=== PATIENT | female | born 1975 | race Caucasian/White ===

== ENCOUNTER 2022-09-13 09:45 | Outpatient (CLI) | payer BC, SELFPAY ==
--- NOTE | 2022-09-13 10:15 | CRLHL7_ITS ---
For Patients: As a result of the Cures Act, medical imaging exams and procedure reports are released immediately into your electronic medical record. You may view this report before your referring provider. If you have questions, please contact your health care provider. BILATERAL SCREENING MAMMOGRAM WITH COMPUTER-AIDED DETECTION AND TOMOSYNTHESIS TECHNIQUE: CC and MLO views were obtained. These mammographic images have been obtained using full-field digital technique. These mammographic images were interpreted with the benefit of computer-aided detection. Breast Tomosynthesis was used in this interpretation. COMPARISON FILM: 09/11/21, 07/08/19, 04/21/18. FINDINGS: The breasts are heterogeneously dense, which may obscure small masses IMPRESSION: There is no radiographic evidence for malignancy. ASSESSMENT: BI-RADS Category 1: Negative RECOMMENDATION: Routine screening mammogram in 1 year. A lay language report of this examination will be provided to the patient. Nick Klein M.D. Diagnostic Radiologist [email or web address] WILLIE/Dictated by: Nick Klein MD @ 09/13/2022 11:38:00 AM WILLIE/Dictated by: Nick Klein MD @ 09/13/2022 11:38:00 AM (Electronically Signed)
== END 2022-09-13 09:46 | disposition home or self-care (01) ==
PROVIDERS: PCP Physician Assistant Medical; Visit Provider Physician Assistant Medical
DX: Z12.31 Encounter for screening mammogram for malignant neoplasm of breast (principal); R92.2 Inconclusive mammogram
CPT/HCPCS: 77063; 77067

== ENCOUNTER 2022-09-19 15:00 | Emergency (ER) | payer BC, SELFPAY ==
[2022-09-19] VITALS (14 sets, daily range): BP systolic 119–133; BP diastolic 70–85; PULSE 61–93; RESP 18; TEMP 36.1; O2SAT 93–99; BMI 32.9
--- NOTE | 2022-09-19 16:34 | ED_ITS ---
HPI - Abdominal Pain General Time Seen by Provider: 16:34 Date Seen: 09/19/22 Chief Complaint: Abdominal Pain Stated Complaint: Dehydration Time Seen by Provider: 09/19/22 16:34 Source: patient, RN notes reviewed and old records reviewed Mode of arrival: ambulatory Limitations: no limitations History of Present Illness HPI narrative: January is a very pleasant 46-year-old female previously healthy who comes to the emergency room for evaluation regarding persistent vomiting and abdominal pain. Patient notes that last night she noticed that her stomach was bothering her. She has been dealing with some what she describes as tightness in her right lower quadrant and states that she was supposed to follow up for a CT. This had been ordered by ISHMAEL Marrufo at the [facility]. She notes that she started vomiting at approximately 0300 hours this morning and has continued in been persistent. She notes some loose stools this morning but states that is often normal for her but this was a little bit more than normal. She states that she had a similar incident at which time they thought she was dealing with diverticulitis. She has had a bladder lift in the past but still retains a gallbladder as well as appendix. She notes no fever or chills. She describes the pain as starting in the right lower quadrant radiating across the entire abdomen and occasionally into her low chest. She has not taken any medications for this. Additional surgery includes a rectal reconstruction after 4th degree tear was repaired after her 2nd baby. Patient was initially feeling somewhat bloated but that has improved. She has been passing gas this afternoon. Related Data Previous Rx's Medication Instructions Recorded hydrocodone 5 mg-acetaminophen 325 1 tab PO Q4-6H PRN pain #14 tabs 09/19/22 mg tablet ondansetron 4 mg disintegrating 4 mg PO Q8H PRN nausea and 09/19/22 tablet vomiting #10 tabs Allergies Allergy/AdvReac Type Severity Reaction Status Date / Time hydrocodone [From Vicodin] Allergy Intermediate vainting Verified 09/19/22 15:18 lactose Allergy Verified 09/19/22 15:18 Gluten Meal Allergy Uncoded 06/17/22 14:21 Review of Systems Status of ROS Reports: 10 or more systems reviewed and unremarkable except as noted in History and below Const Denies: fever or chills ENMT Reports: throat pain (From vomiting); Denies: neck pain, throat swelling, difficulty swallowing or hoarseness Cardio Reports: chest pain; Denies: palpitations, swelling of feet/ankles, lightheadedness or shortness of breath with exertion Resp Denies: shortness of breath or cough GI Reports: abdominal pain, nausea, vomiting and diarrhea; Denies: difficulty swallowing Denies: painful urination Musculo Denies: back pain, neck pain or extremity pain Integ/Breast Denies: rash Neuro Denies: headache or numbness in extremities Endo Denies: excessive urination Allergy/Immuno Denies: throat swelling PFSH PFS Surgical History History of shoulder surgery (09/28/12) ?Z98.890 - Other specified postprocedural states (ICD-10) History of foot surgery (09/28/12) ?Z98.890 - Other specified postprocedural states (ICD-10) Status post arthroscopy of right shoulder (01/30/07) ?Z98.890 - Other specified postprocedural states (ICD-10) Status post arthroscopy of right shoulder (03/06/18) ?Z98.890 - Other specified postprocedural states (ICD-10) Social History Smoking Status: Current every day smoker How often do you have a drink containing alcohol: 4 or more times a week How many standard drinks containing alcohol do you have on a typical day: 1 or 2 AUDIT-C Alcohol total score: 4 Non-prescribed substance use: denies use Exam Narrative: Exam Narrative: Patient is sleeping when I enter the room. She is easily awoken. She is alert and oriented. Eyes are clear. Speech is normal and mentation is as well. Her lips are dry her tongue is with moist mucous membranes. Neck is supple heart with regular rate and rhythm. Lungs are clear bilaterally. Abdomen shows some tenderness in the right lower quadrant but no rebound tenderness at this time. Bowel sounds are present and are normal. Lower extremities without edema. Moving all extremities Const: Vital Signs, click to edit/add: Vital Signs - 24 hr 09/19/22 15:14 09/19/22 17:23 09/19/22 17:24 Temperature 97.0 F L Pulse Rate 69 66 Pulse Rate [Left P ulse Oximeter] 76 Respiratory Rate 18 Blood Pressure 130/85 Blood Pressure [Ri ght Upper Arm] 127/78 Pulse Oximetry 97 99 96 Oxygen Delivery Me thod Room Air 09/19/22 17:41 09/19/22 17:45 09/19/22 17:46 Temperature Pulse Rate 86 85 68 Pulse Rate [Left P ulse Oximeter] Respiratory Rate Blood Pressure 133/72 Blood Pressure [Ri ght Upper Arm] Pulse Oximetry 97 93 98 Oxygen Delivery Me thod 09/19/22 18:00 09/19/22 18:01 09/19/22 18:15 Temperature Pulse Rate 81 70 68 Pulse Rate [Left P ulse Oximeter] Respiratory Rate Blood Pressure 127/72 Blood Pressure [Ri ght Upper Arm] Pulse Oximetry 94 96 97 Oxygen Delivery Me thod 09/19/22 18:30 09/19/22 18:31 09/19/22 18:45 Temperature Pulse Rate 62 61 93 Pulse Rate [Left P ulse Oximeter] Respiratory Rate Blood Pressure 120/77 Blood Pressure [Ri ght Upper Arm] Pulse Oximetry 96 95 95 Oxygen Delivery Me thod 09/19/22 19:00 09/19/22 19:02 Temperature Pulse Rate 71 70 Pulse Rate [Left P ulse Oximeter] Respiratory Rate Blood Pressure 119/70 Blood Pressure [Ri ght Upper Arm] Pulse Oximetry 95 99 Oxygen Delivery Me thod Documenting provider has reviewed patient's vital signs: yes Course Course Hospital Course: Differential diagnosis includes but is not limited to viral gastroenteritis, small-bowel obstruction, diverticulitis, colitis, ischemic bowel, appendicitis, UTI, sepsis, kidney stone. Will place an IV and give Toradol 15 mg, Zofran 4 mg IV as well as 1 L of normal saline. Will check labs to include CBC, comprehensive panel, CRP, lipase, urinalysis, CRP. Given patient's level of discomfort along with the nausea and previous plan to have a CT will order some abdominal CT with contrast. Vital Signs Vital signs: Initial Vital Signs Temperature 97.0 F L 09/19/22 15:14 Temperature Source Temporal Artery Scan 09/19/22 15:14 Pulse Rate 76 09/19/22 15:14 Respiratory Rate 18 09/19/22 15:14 Blood Pressure 127/78 09/19/22 15:14 Blood Pressure Mean 94 09/19/22 15:14 Blood Pressure Position Sitting 09/19/22 15:14 Pulse Oximetry 97 09/19/22 15:14 Oxygen Delivery Method Room Air 09/19/22 15:14 Vital Signs Temperature 97.0 F L 09/19/22 15:14 Pulse Rate 76 09/19/22 15:14 Respiratory Rate 18 09/19/22 15:14 Blood Pressure 127/78 09/19/22 15:14 Pulse Oximetry 97 09/19/22 15:14 Oxygen Delivery Method Room Air 09/19/22 15:14 Temperature 97.0 F L 09/19/22 15:14 Pulse Rate 70 09/19/22 19:02 Respiratory Rate 18 09/19/22 15:14 Blood Pressure 119/70 09/19/22 19:02 Pulse Oximetry 99 09/19/22 19:02 Oxygen Delivery Method Room Air 09/19/22 15:14 MDM - Abdominal Pain MDM Narrative Medical decision making narrative: 1. Gastritis-gastritis is identified on CT. Patient noted to have leukocytosis likely demargination from vomiting as we is not we have not been able to identify any specific infection and CRP was within normal limits. Amylase also within normal limits as are LFTs. Patient had no pain over right upper quadrant. Patient is given pantoprazole 80 mg IV. Will have patient continue omeprazole 40 mg daily for an additional 2 weeks. Patient is a smoker and this may be H pylori infection. I would like her to follow up with [facility] as she has relationship with them. And upper endoscopy with biopsy is likely what should have been in this particular case. For pain would like her to avoid ibuprofen although she did have improvement of her met pain with that particular medicine here in the ER. She notes that she gets sick when she takes Vicodin and thus I will give her some Zofran to help mitigate that feeling. Vicodin 5/325 1-2 tabs p.o. q.4-6 hours p.r.n. number 10 with no refills. Zofran 4 mg ODT Q 6-8 hours p.r.n. 10. With no refills. 2. Vomiting-Zofran 4 mg IV resolve this. Patient also received 1 L of normal saline. She has had resolution of this symptom. 2. Disposition-home at this time. [employer]. Push fluids. Pain meds as directed. Follow-up with [facility] for further evaluation. Return to the emergency room for worsening symptoms. Medical Records Attestation: I reviewed the patient's medical records. Lab Data Attestation: I reviewed the patient's lab results. Labs: Lab Results 09/19/22 09/19/22 Range/Units 16:55 17:05 WBC 14.21 H (4.50-11.00) K/uL RBC 4.92 (4.00-5.20) m/uL Hgb 16.7 H (12.0-16.0) gm/dL Hct 48.2 (33.0-51.0) % MCV 98 (80-100) fL MCH 34 (26-34) pg MCHC 35 (32-36) gm/dL RDW Coeff of Gissel 12.0 (11.5-15.5) % Plt Count 338 (140-440) K/uL Neut % (Auto) 84.5 H (42.0-72.0) % Lymph % (Auto) 10.3 L (20-44) % [place] % (Auto) 4.7 (0.0-11.0) % Eos % (Auto) 0.2 (0.0-7.0) % Baso % (Auto) 0.1 (0.0-3.0) % Neut # (Auto) 12.00 H (1.7-7.0) K/uL Lymph # (Auto) 1.50 (0.90-2.90) K/uL [place] # (Auto) 0.70 (0.00-0.90) K/UL Eos # (Auto) 0.00 (0.00-0.50) K/uL Baso # (Auto) 0.00 (0.00-0.30) K/uL Sodium 139 (135-149) mmol/L Potassium 3.9 (3.6-5.1) mmol/L Chloride 101 (96-114) mmol/L Carbon Dioxide 26 (20-32) mmol/L BUN 12 (5-24) mg/dL Creatinine 0.8 (0.5-1.5) mg/dL Estimated Creat Clear 68.76 Estimated GFR 91 ml/min Glucose 124 H (60-115) mg/dL Calcium 9.5 (8.4-10.6) mg/dL Total Bilirubin 1.3 (0.1-1.5) mg/dL Direct Bilirubin 0.3 (0.0-0.5) mg/dL AST 23 (12-35) U/L ALT 26 (4-35) U/L Alkaline Phosphatase 76 (40-150) U/L C-Reactive Protein 0.7 (0.5-1.0) mg/dL Total Protein 8.3 (6.0-8.3) g/dL Albumin 5.0 (3.3-5.0) g/dL Lipase 88 (23-300) U/L Urine Color Yellow (Yellow) Urine Appearance Clear (Clear) Urine pH 5.0 (5.0-8.5) Ur Specific [place] >= 1.030 (1.000-1.030) Urine Protein Negative (Negative) Urine Glucose (UA) Negative (Negative) Urine Ketones 1+ A (Negative) Urine Blood Negative (Negative) Urine Nitrite Negative (Negative) Urine Bilirubin Negative (Negative) Urine Urobilinogen 0.2 (0.2-1.0) Ur Leukocyte Esterase Negative (Negative) Urine RBC 0-2 (0-2) Urine WBC 0-2 (0-5) Ur Squamous Epith Cells Few (None-Few) Urine Bacteria None (None) Imaging Data CT scan - abdomen: Attestation: I have reviewed the pertinent imaging results. Radiologist's impression: Lower chest: Unremarkable. Liver: Unremarkable. Normal in size and attenuation. No suspicious masses. Gallbladder and bile ducts: Unremarkable. No stones or inflammation. No biliary dilatation. Pancreas: Unremarkable. No mass or inflammation. Spleen: Unremarkable. Normal in size. No masses. Adrenal glands: Unremarkable. No nodules. Kidneys: Unremarkable. No suspicious masses, stones, or hydronephrosis. GI tract: Mild gastric wall thickening accentuated by nondistention. Normal in caliber. No sign of mass or inflammation. Appendix not seen, however no right lower quadrant inflammatory stranding. Vasculature: Abdominal aorta is normal in caliber. Mesenteric arteries are patent. Lymph nodes: No lymphadenopathy. Peritoneum/Abdominal Wall: Unremarkable. No sign of mass or infiltration. No free air or significant free fluid. Pelvis: Unremarkable. Bones: Unremarkable for age. IMPRESSION: Mild gastric wall thickening accentuated by nondistention. Low grade gastritis not excluded. Discharge Plan Discharge Clinical Impression: Gastritis Qualifiers: Gastritis type: unspecified gastritis Chronicity: acute Gastritis bleeding: without bleeding Qualified Code(s): K29.00 - Acute gastritis without bleeding Abdominal pain Qualifiers: Abdominal location: unspecified location Qualified Code(s): R10.9 - Unspecified abdominal pain Vomiting Qualifiers: Vomiting type: unspecified Nausea presence: with nausea Qualified Code(s): R11.2 - Nausea with vomiting, unspecified Patient Disposition: Home, Self-Care Condition: Improved Additional Instructions: Tomorrow, I would like you to start on omeprazole which is bcdm-vbf-wamroun acid suppressor for your stomach. Instead of 1 tablet per the instructions I would like you to take 2 tablets every 24 hours. I would like you to follow-up with [facility] for evaluation as I do think you will likely need endoscopy and stomach biopsy to check for H pylori. For nausea you may use Zofran 4 mg ODT as needed. For pain you may use Vicodin 5/325. Note that this medication has both Tylenol in it and a narcotic called hydrocodone. Hydrocodone also known as Vicodin should not be used with Ativan, lorazepam, Valium or any other benzodiazepines. It may make you constipated. Return to the emergency room for bleeding, worsening pain, onset of new symptoms and as needed. Prescriptions: New hydrocodone-acetaminophen 5-325 mg tablet 1 tab PO Q4-6H PRN (Reason: pain) Qty: 14 0RF ondansetron 4 mg tablet,disintegrating 4 mg PO Q8H PRN (Reason: nausea and vomiting) Qty: 10 0RF Follow Up/Referrals: Vincent Marrufo PA-C [Primary Care Provider] - Stand Alone Forms: [employer] Info Instructions
--- NOTE | 2022-09-19 16:50 | CRLHL7_ITS ---
For Patients: As a result of the Century Cures Act, medical imaging exams and procedure reports are released immediately into your electronic medical record. You may view this report before your referring provider. If you have questions, please contact your health care provider. INDICATION: Right lower quadrant and upper epigastric pain. TECHNIQUE: CT abdomen and pelvis acquired with 89 cc Isovue 370 IV contrast. COMPARISON: None. FINDINGS: Lower chest: Unremarkable. Liver: Unremarkable. Normal in size and attenuation. No suspicious masses. Gallbladder and bile ducts: Unremarkable. No stones or inflammation. No biliary dilatation. Pancreas: Unremarkable. No mass or inflammation. Spleen: Unremarkable. Normal in size. No masses. Adrenal glands: Unremarkable. No nodules. Kidneys: Unremarkable. No suspicious masses, stones, or hydronephrosis. GI tract: Mild gastric wall thickening accentuated by nondistention. Normal in caliber. No sign of mass or inflammation. Appendix not seen, however no right lower quadrant inflammatory stranding. Vasculature: Abdominal aorta is normal in caliber. Mesenteric arteries are patent. Lymph nodes: No lymphadenopathy. Peritoneum/Abdominal Wall: Unremarkable. No sign of mass or infiltration. No free air or significant free fluid. Pelvis: Unremarkable. Bones: Unremarkable for age. IMPRESSION: Mild gastric wall thickening accentuated by nondistention. Low grade gastritis not excluded. Otherwise, no acute intra-abdominal/pelvic abnormality. Please note that all CT scans at this facility use dose modulation, iterative reconstruction, and/or weight-based dosing when appropriate to reduce radiation dose to as low as reasonably achievable. Dictated by Dimitris Gustafson MD @ 09/19/2022 6:48:10 PM (Electronically Signed)
[2022-09-19 17:05] LABS: Appearance Urine Clear (Clear); Bilirubin Urine Negative (Negative); Blood Urine Negative (Negative); Color Urine Yellow (Yellow); Glucose Urine Negative (Negative); Ketones Urine 1+ (Negative); Leukocyte Esterase Urine Negative (Negative); Nitrite Urine Negative (Negative); Protein Urine Negative (Negative); Specific Gravity Urine >= 1.030 (1.000-1.030); Urobilinogen Urine 0.2 (0.2-1.0)
[2022-09-19] MEDS: ONDANSETRON 2 MG/ML inj 4 MG IVP (17:14)
[2022-09-19] MEDS: 0.9 % SODIUM CHLORIDE 1000 ml 1,000 ML IV (17:14)
[2022-09-19] MEDS: KETOROLAC 15 MG/ML inj IVP (17:14)
[2022-09-19 17:17] LABS: RBC Urine 0-2 (0-2); Squamous Epithelial Cell Urine Few (None-Few); WBC Urine 0-2 (0-5)
[2022-09-19 17:18] LABS: Basophils Percent Auto 0.1 % (0.0-3.0); Eosinophils Percent Auto 0.2 % (0.0-7.0); Hematocrit 48.2 % (33.0-51.0); Hemoglobin* 16.7 gm/dL (12.0-16.0); Immature Granulocytes Pct Auto 0.2 %; Lymphocytes Percent Auto 10.3 % (20-44); Mean Corpuscular HGB Conc 35 gm/dL (32-36); Mean Corpuscular Hemoglobin 34 pg (26-34); Mean Corpuscular Volume 98 fL (80-100); Monocytes Percent Auto 4.7 % (0.0-11.0); Neutrophils Percent Auto 84.5 % (42.0-72.0); Platelet Count* 338 K/uL (140-440); Red Blood Count 4.92 m/uL (4.00-5.20); White Blood Count* 14.21 K/uL (4.50-11.00)
[2022-09-19 17:33] LABS: Chloride* 101 mmol/L (96-114); Sodium* 139 mmol/L (135-149)
[2022-09-19 17:34] LABS: Potassium* 3.9 mmol/L (3.6-5.1)
[2022-09-19 17:36] LABS: Carbon Dioxide* 26 mmol/L (20-32); Creatinine* 0.8 mg/dL (0.5-1.5); Est. Creatinine Clearance* 68.76; Estimated Glomerular Filt Rate 91 ml/min; Slide Review Reflex No
[2022-09-19 17:37] LABS: Alanine Aminotransferase* 26 U/L (4-35); Alkaline Phosphatase* 76 U/L (40-150); Aspartate Amino Transferase* 23 U/L (12-35); Bilirubin Direct* 0.3 mg/dL (0.0-0.5); Bilirubin Total* 1.3 mg/dL (0.1-1.5); Blood Urea Nitrogen* 12 mg/dL (5-24); Calcium* 9.5 mg/dL (8.4-10.6); Glucose* 124 mg/dL (60-115); Lipase* 88 U/L (23-300); Total Protein* 8.3 g/dL (6.0-8.3)
[2022-09-19 17:40] LABS: C Reactive Protein* 0.7 mg/dL (0.5-1.0)
[2022-09-19] MEDS: PANTOPRAZOLE SODIUM 80 MG in 0.9 % SODIUM CHLORIDE 100 ml 100 ML 10 MG IVPB (19:10)
== END 2022-09-19 19:32 | disposition home or self-care (01) ==
PROVIDERS: Emergency Provider Family Medicine; PCP Physician Assistant Medical
DX: R11.2 Nausea with vomiting, unspecified (principal); K29.00 Acute gastritis without bleeding
CPT/HCPCS: 36415; 74177; 80053; 81001; 82248; 83690; 85025; 86140; 96365; 96375; 99284; C9113; J1885; J2405; J7030; Q9967

== ENCOUNTER 2022-11-13 09:49 | Outpatient (CLI) | payer BC, SELFPAY ==
--- NOTE | 2022-11-13 10:15 | CRLHL7_ITS ---
For Patients: As a result of the Century Cures Act, medical imaging exams and procedure reports are released immediately into your electronic medical record. You may view this report before your referring provider. If you have questions, please contact your health care provider. INDICATION: RUQ PAIN COMPARISON: CT 09.19.22 TECHNIQUE: Real time vargas scale imaging and color Doppler analysis was performed of the gallbladder. FINDINGS: The gallbladder is of normal size and there is no evidence of intraluminal stones or sludge. The gallbladder wall measures 1.6 mm in thickness. The common bile duct is of normal size and measures 4.6 mm in diameter at the level of the ricco hepatis. IMPRESSION: Normal ultrasound of the gallbladder. Dictated by Nick Klein MD @ 11/13/2022 10:37:12 AM (Electronically Signed)
== END 2022-11-13 09:50 | disposition home or self-care (01) ==
LOC: US 09:50
PROVIDERS: PCP Physician Assistant Medical; Visit Provider Internal Medicine Gastroenterology
DX: R10.11 Right upper quadrant pain (principal)
CPT/HCPCS: 76705

== ENCOUNTER 2023-05-27 07:03 | Outpatient (CLI) | payer BC, SELFPAY ==
--- NOTE | 2023-05-27 07:15 | MR_ITS ---
[address] [address] Phone:?[phone] Fax:?[phone] Referring Physician Information: Frank Bright M.D. [address] [address] Phone:?[phone] Fax:?[phone] Patient:Jesse Cadet D.O.B:?1975 Sex:?Female Phone:?[phone] [facility] MRN:?[id number] Exam Date:?05/27/2023 EXAM: MRI of the RIGHT SHOULDER, without contrast CLINICAL: Female, 47 years old, with right shoulder pain. INDICATION: Evaluate rotator cuff for tear. PRIOR SURGERY: Reported history of surgery for labral tear in 2018. PLAIN FILMS: 1024 radiographic series of the right shoulder. COMPARISONS: 02/17/2018 MRI of the right shoulder. TECHNICAL: Using a 1.5T MR scanner and a localizing shoulder surface coil: 3.0 mm?coronal obliques: PD, T2, STIR 3.0 mm?sagittal obliques: PD, T2 3.0 mm?axials: PD, T2 SEDATION: None. CONTRAST: None. IMPRESSION: 1. Moderate glenohumeral chondromalacia/osteoarthritis. 2. Superficial injury intrasubstance tendinosis/tendinopathy and expected superficial bursal surface irregularity/attenuation of the distal mid towards anterior supraspinatus tendon but without more well-defined or full-thickness tear. 3. Small area of borderline abnormal subacromial bursal T2 hyperintensity/edema. 4. Residua of superior labrum tear but with rather prominent attenuation D of the superior labrum 5. Anterior acromioplasty and distal clavicle excision for decompression appears adequate. FINDINGS: Glenohumeral joint: Effusion/cyst: Small towards moderate glenohumeral joint effusion. No paralabral ganglion cyst. Articular cartilage: Humeral head: Foci of grade II-III chondromalacia of the inferomedial and superior humeral head, without subjacent marrow edema. Glenoid: Also chondral thinning of the superior glenoid, without subjacent marrow edema. Loose bodies: No convincing larger loose bodies although smaller debris would be difficult to exclude with certainty. Inferior glenohumeral ligament/axillary recess: The axillary recess is normal in thickness and signal. No evidence of adhesive capsulitis or capsuloligamentous injury. Labrum: Evidence of residua of superior labral tear repair surgery with 2 superior suture anchors. The superior labrum appears deformed consisting of rather marked attenuation and irregularity predominantly posterior to the biceps anchor (coronal images 13-16). The anterior and posterior labrum appear intact. Bones: Proximal humerus: Mild inferomedial marginal osteophyte formation of the humeral head reflects the glenohumeral osteoarthritis. Small subchondral cysts and some chronic cortical hyperostosis of the posterior humeral sulcus is nonspecific. The proximal humerus is otherwise intact. No fracture or marrow edema/pathology. No humeral Hill-Sachs or reverse Hill-Sachs lesion/impaction or contusion. Glenoid: Two suture anchors and tracks in the superior glenoid rim are in keeping with residua of superior labral tear repair surgery. No fracture or marrow edema/pathology. No osseous Bankart lesion. Coracoacromial arch: Acromion morphology: Residua of anterior acromioplasty for decompression appears adequate. No mesoacromion or preacromion. Acromiohumeral space: Within normal limits as residua of anterior acromioplasty. Coracohumeral space: Within normal limits. 9.5 mm bony distance. 6.5 lm soft tissue distance. 11 mm coracoid overlap. Acromioclavicular joint: Joint: Residua of distal clavicle excision for decompression appears adequate. Ligaments: Coracoclavicular ligaments are intact. Bursae: Subacromial-subdeltoid: A small amount of slender T2 hyperintensity of the subacromial space borderline abnormal for bursitis although of indeterminate significance in light of history of prior surgery (coronal STIR series 4, images 14-11). Subcoracoid: No convincing subcoracoid bursal thickening/bursitis. Rotator cuff and muscles/tendons: Supraspinatus: Mild intrasubstance and superficial tendinosis/tendinopathy of the distal supraspinatus tendon with perhaps some superficial bursal surface irregularity but without convincing larger well-defined coalescence of partial- or full-thickness tear (coronal images 14-10)'s. No tendon or myotendinous junction retraction. No muscle atrophy. Infraspinatus: No tendinopathy, tear or atrophy. Teres minor: No tendinopathy, tear or atrophy. Subscapularis: Mild subscapularis tendinosis without more marked tendinopathy or defined tear. No tendon or myotendinous junction retraction. No muscle atrophy. Deltoid: No strain or atrophy. Biceps tendon, long head: The long head of the biceps tendon is present within the bicipital groove. Intra-articular and extra-articular segments are intact without tendinopathy or displacement. Axilla: No axillary masses or abnormally enlarged lymphadenopathy. [facility] Electronically signed on 05/27/2023 2:27:00 PM by Lacho Guerrero M.D.
== END 2023-05-27 07:04 | disposition home or self-care (01) ==
LOC: MRI 07:04
PROVIDERS: PCP Physician Assistant Medical; Visit Provider Orthopaedic Surgery
DX: M25.511 Pain in right shoulder (principal); M19.011 Primary osteoarthritis, right shoulder; S43.431A Superior glenoid labrum lesion of right shoulder, initial encounter
CPT/HCPCS: 73221

== ENCOUNTER 2023-09-17 10:02 | Outpatient (CLI) | payer BC, SELFPAY ==
--- NOTE | 2023-09-17 10:15 | MM_ITS ---
Patient: SAM BELL Facility:?[facility] Patient ID:?[id number] Site Patient ID:?[id number]. Site :?1975 Study:?XRay-Breast Bilateral 3D W/CAD-09/17/2023 10:27:22 AM Ordering Physician:Vincent Peace Final Report: BILATERAL SCREENING MAMMOGRAM WITH COMPUTER-AIDED DETECTION AND TOMOSYNTHESIS TECHNIQUE: CC and MLO views were obtained. These mammographic images have been obtained using full-field digital technique. These mammographic images were interpreted with the benefit of computer-aided detection. Breast Tomosynthesis was used in this interpretation. COMPARISON FILM: 09/13/22, 09/11/21, 07/08/19. FINDINGS: There are scattered areas of fibroglandular density. IMPRESSION: There is no radiographic evidence for malignancy. ASSESSMENT: BI-RADS Category 1: Negative RECOMMENDATION: Routine screening mammogram in 1 year. A lay language report of this examination will be provided to the patient. Nick Klein M.D. Diagnostic Radiologist [email or web address] DSM/sp R& Transcribed: 4:04 p.m. SP/Dictated by: Nick Klein MD @ 09/22/2023 1:24:00 PM Signed by:?Nick Klein MD @09/22/2023 5:13:40 PM (Electronic Signature)
== END 2023-09-17 10:03 | disposition home or self-care (01) ==
LOC: MAMMO 10:03
PROVIDERS: PCP Physician Assistant Medical; Visit Provider Physician Assistant Medical
DX: Z12.31 Encounter for screening mammogram for malignant neoplasm of breast (principal)
CPT/HCPCS: 77063; 77067

== ENCOUNTER 2024-02-05 08:00 | Outpatient (CLI) | payer BC, SELFPAY ==
--- NOTE | 2024-02-05 08:15 | CRLHL7_ITS ---
For Patients: As a result of the Century Cures Act, medical imaging exams and procedure reports are released immediately into your electronic medical record. You may view this report before your referring provider. If you have questions, please contact your health care provider. INDICATION: Abdominal spasms. FINDINGS: A small bowel follow-through shows normal distention and appearance of the small bowel. Rapid transit of contrast through the small bowel and into the colon in 25 minutes. No other abnormalities identified. IMPRESSION: No abnormalities of the small bowel identified. Dictated by Holger Araujo MD @ 02/05/2024 12:42:39 PM (Electronically Signed)
== END 2024-02-05 08:01 | disposition home or self-care (01) ==
LOC: RAD 08:00
PROVIDERS: PCP Physician Assistant Medical; Visit Provider Internal Medicine Gastroenterology
DX: R10.9 Unspecified abdominal pain (principal); Z98.890 Other specified postprocedural states
CPT/HCPCS: 74250

== ENCOUNTER 2024-03-03 09:14 | Outpatient (CLI) | payer BC, SELFPAY ==
[2024-03-05 19:52] LABS: HPV Source Cervical/Vag; HPV, High Risk by TMA Not Detected
== END 2024-03-03 09:15 | disposition home or self-care (01) ==
PROVIDERS: PCP Physician Assistant Medical; Visit Provider Physician Assistant Medical
DX: E78.1 Pure hyperglyceridemia (principal); N95.1 Menopausal and female climacteric states; Z12.4 Encounter for screening for malignant neoplasm of cervix
CPT/HCPCS: 80053; 80061; 83001; 84443; 87624; 87625; 88141; 88142

== ENCOUNTER 2025-01-12 09:02 | Outpatient (CLI) | payer BC, SELFPAY ==
--- NOTE | 2025-01-12 09:15 | CRLHL7_ITS ---
For Patients: As a result of the Century Cures Act, medical imaging exams and procedure reports are released immediately into your electronic medical record. You may view this report before your referring provider. If you have questions, please contact your health care provider. INDICATION: BILATERAL SCREENING MAMMMOGRAM, ASYMPOTMATIC 49 Y/O FEMALE COMPARISON: 09/17/2023, 09/13/2022 TECHNIQUE: Digital mammogram in CC and MLO projections including computer-aided detection (CAD) and tomosynthesis. BREAST COMPOSITION: There are scattered areas of fibroglandular density. FINDINGS: No suspicious findings. ASSESSMENT: BI-RADS 1 Negative RECOMMENDATION: Annual screening mammogram. A lay language report of this examination will be provided to the patient. Dictated by: Nick Klein MD @ 01/12/2025 10:16:40 (Electronically Signed)
== END 2025-01-12 09:03 | disposition home or self-care (01) ==
LOC: MAMMO 09:02
PROVIDERS: PCP Physician Assistant Medical; Visit Provider Physician Assistant Medical
DX: Z12.31 Encounter for screening mammogram for malignant neoplasm of breast (principal)
CPT/HCPCS: 77063; 77067